=== PATIENT | female | born 1995 | race Caucasian/White ===

== ENCOUNTER 2022-07-31 14:30 | Outpatient (RCR) | payer OTHER, SELFPAY ==
--- NOTE | 2022-05-26 18:04 | HP.SP.EV_ITS ---
Visit History - Visit Info Date of Eval: 05/26/22 Visit: 1 Patient's Approved Number of Visits: 30 Insurance Date Limit: 02/21/23 Data Communications Engineer: DULCE - History Attending Doctor: Referring Doctor: Reason for Referral: VOCAL CORD DYSKINESIA/RX HERE Date of Onset of Diagnosis: 05/19/22 Previous speech therapy: No Other Relevant Medical History/Diagnoses/Surgery: ABDON JUARES is a 26 year old female who presents today to speech therapy d/t concerns with vocal cord dysfunction following appointment with Dr. Vilallta. Mom sitting in on evaluation and helped serve as historian. Abdon reporting she self-extubated at age 3 and has had problems ever since - at that time Pt had no voice for a few weeks per mom, the she transitioned into a whisper. Pt's voice is now raspy which could be d/t GERD. Pt reporting in the last 2-3 years her coughing and gagging has gotten worse - 2 to 3 years ago Abdon experiencing the of a loved one d/t lung related issues and it was also right after having COVID-19 (has had COVID again within the past few months). Pt is vomitting at work from coughing so hard. Pt reporting having chest pain during these - like she is breathing through a straw. Pt reporting in early February she had an instance of wheezing and not being able to cough for a whole week. Pt was on antibiotics for bronchitis which then helped clear up the wheezing. Late February/early March Pt testing positive for COVID-19 which she reports not having many symptoms with. Pt had a brain MRI in 2015 to rule out seizures. Medications related to this diagnosis: trazadone, paroxetine, omeprazole, buspirone, Nexplanon Smoking Status: Former smoker - Stopped in 2018, however continues to be exposed to second hand smoke - Diagnosis Diagnosis: Vocal Cord Dysfunction is current working diagnosis - Pain Is pain an issue with your current prescribed condition?: Yes - Personal Preferred language: Luxembourger History - History Medications related to this diagnosis: trazadone, paroxetine, omeprazole, bus pirone, Nexplanon - Pain Is pain an issue with your current prescribed condition?: Yes Subjective Voice - Informal Questioner Do you raise your voice (e.g. parenting, calling from room to room, etc.): Average Do you talk for long periods of time without a break (teacher, teague): More than average Are you a talker: More than average Do you clear your throat: Average Do you cough: More than average How often do you use the telephone: Less than average Do you do impersonations, character voices or unusual sound effects: None - Intubation Was the Client intubated: Yes If yes, list date, duration, and explanation: When Pt was 3 years old Pt was intubated d/t pneumococcal pneumonia. Pt also self-extubated herself and experienced dysphonia following this episode. - Intake Coffee (ounces): 24 Energy drinks (ounces): 24 - Alcoholic Beverage Intake Intake: Weekly Objective Voice - Date of Diagnosis Date of diagnosis: 05/19/22 Previous Speech Therapy (If yes, describe): No Details of therapy: Today is Pt's first evaluation with speech therapy. Pt and her mom participated in extensive case history review. Direct education provided re: anatomy of the voice system and how her vocal quality appears to be raspy which may be likely caused by her acid reflux - with a contributing diminished right vocal fold (per Dr. Villalta's report). Pt reporting she participated in a pulmonary function test which was unremarkable. Pt does breathe through her mouth at baseline at times. Pt reporting her coughing, gagging, and vommitting episodes occur when she is under exertion while fast walking or going to the bathroom. Pt did confirm history of anxiety which could be contributing to recovery following these episodes. Pt with no inhalatory stridor today. Thorough education provided re: GERD's role in voice changes along with how it can contribute to vocal cord dysfunction. Pt also has a diagnosed hiatal hernia. Her last appt with GI was about 1-2 years ago. Encouraged Pt to follow up with GI to discuss pulmonology findings and that she has initiated speech therapy. Suspect Pt may be appropriate for an esophagram, esophageal manometry, and/or repeat upper GI to see progression of her hiatal hernia. Suspect Pt may also have a post-nasal drip given her report of coughing up what feels like phlegm - which could also be contributing to the coughing spells. Education provided re: approach to speech therapy via reviewing her vocal habits, eating habits, sle eping patterns, and diaphragmatic breathing. Semi-occluded vocal tract exercises may also be appropriate upon further evaluation. Following education and case history, Pt reporting feeling hopeful that changes could be made to attempt to remediate the coughing and gagging. Introduced the idea of participating in a laryngoscopy by ENT to assess for post nasal drip and inflammation to the true vocal folds/surrounding tissues d/t GERD. Pt mentioning quality of life and how she hopes this is not what she will need to live with forever. Subjective Clinical Impression - Adult Clinical Impression Harshness: irregular vocal fold vibrations creating a 'raspy' or unmusical tone; a combination of hoarseness and breathiness: Present - Non-Phonatory Behaviors/Respiration Throat clearing/coughing: Present Plan - Plan Plan: Will recommend Pt for skilled outpatient speech therapy to address deficits in vocal function characterized by suspected vocal cord dysfunction. Pt would benefit from training in identifying instances of vocal abuse, providing vocal hygiene solutions, training in diaphragmatic breathing, relaxation techniques, and direct education re: vocal health. Without skilled speech therapy Pt is at risk for pulmonary distress in a variety of social situations. - Recommendations Treatment Warranted: Yes Treatment Warranted: Voice Comment: Follow-up with GI. ENT consult pending progress with treatment. - Progress Prognosis: Good - Frequency Frequency: 1-2x /Week Duration: 2 Months - Goals that are Established Determination:: Goals will be added/modified as deemed necessary and a ppropriate. Therapy will be discontinued when results of re-evaluation indicate therapy is no longer needed or lack of progress has been documented. - Goal #1-5 Goal #1: Abdon will establish volitional control of respiration evidenced by utilization of diaphragmatic breathing during structured tasks within 4 weeks with 80% accuracy independently. Goal #2: Abdon will establish volitional control of respiration evidenced by utilization of rescue breathing during structured tasks within 4 weeks with 80% accuracy independently. Goal #3: Pt will reduce environmental factors (e.g., smoke exposure, energy drinks, coffee) within 4 weeks? time of initial evaluation to determine their contribution to current vocal pathology. Education - Patient has Indicated that the Following Identified Educational Needs: None The Patient has indicated that they have no educational or learning abilities that may effect their care.: Yes - Patient Instruction Patient Education: Diagnosis, Treatment Plan, Goals Person Taught: Patient, Family Teaching Method: Discussion, Demonstration Response to teaching: Return demonstration, Verbalize understanding, Reinforcement needed
--- NOTE | 2022-09-01 10:16 | HP.SP.DC_ITS ---
ST Discharge Summary Discharged: Discharge: ABDON JUARES is a 27 year old female who was seen for initial voice evaluation at [facility] on 05/26/21 secondary to dx of suspected vocal cord dysfunction following nasoendoscopy from ENT. Pt attending initial evaluation and 6 additional therapy sessions which targeted relaxation techniques, diaphragmatic breathing and rescue breathing with static body and active body (walking on treadmill), neck relaxation exercises, breath support for sustained phonation, eliminate environmental and behavioral factors, keeping a weekly log of 'not breathing' instances, and keeping a weekly log of VCD occurrences. Pt being discharged from speech therapy caseload on this date, 09/01/22, secondary to Pt canceling last session which was previously agreed upon by Pt and therapist that she would cancel if she felt everything was still going well at home. Thank you for allowing me to participate the care of your Pt. Will reevaluate at Pt?s request following script from physician.
== END 2022-07-31 19:00 | disposition home or self-care (01) ==
LOC: SP 14:30
PROVIDERS: PCP Nurse Practitioner; Referring Provider Internal Medicine Pulmonary Disease; Visit Provider Internal Medicine Pulmonary Disease
DX: J38.3 Other diseases of vocal cords (principal)
CPT/HCPCS: 92507; 92524